=== PATIENT | female | born 1950 | race Asian ===

== ENCOUNTER 2016-11-24 13:31 | Emergency (ER) | payer OTHER ==
[~2016-11-24] VITALS: Ht 162.6 cm; Wt 90.7 kg
[~2016-11-24 13:31] MED LIST: HYDR25TA6 PO; LISI40TA PO; ONDA4TAB10 PO; SIMV40TA3 PO
[2016-11-24] MEDS ORDERED: [UNRECOGNIZED DRUG - OTHER] (13:58)
[2016-11-24] MEDS ORDERED: MECLIZINE CHEWABLE 25 MG TAB ONE (14:08)
[2016-11-24] MEDS ORDERED: MECLIZINE CHEWABLE 25 MG TAB PO ONE (14:30)
[2016-11-24 14:36] LABS: ASPARTATE AMINO TRANSFERASE 25 U/L (15-37); BLOOD UREA NITROGEN 26 mg/dL (7-18)
[2016-11-24] MEDS ORDERED: SODIUM CHLORIDE FLUSH 10ML SYR IVF ONE (15:00)
[2016-11-24] MEDS ORDERED: SODIUM CHLORIDE 0.9% 1,000ML IVBOLUS ONE (15:00)
[2016-11-24] MEDS ORDERED: GADOBUTROL 10 MMOL/10 ML PFS ONE (16:17)
[2016-11-24] MEDS ORDERED: DIAZEPAM 5 MG/ML, 2ML IVPush ONE (17:00)
[2016-11-24] MEDS ORDERED: DIAZEPAM 5 MG/ML, 2ML ONE (17:00)
[2016-11-24 17:39] VITALS: BP 138/73
== END 2016-11-24 18:17 | disposition home or self-care (01) ==
LOC: ED 14:42
DX: R42 Dizziness and giddiness (principal); I10 Essential (primary) hypertension; E78.00 Pure hypercholesterolemia, unspecified; E11.9 Type 2 diabetes mellitus without complications; Z90.710 Acquired absence of both cervix and uterus
CPT/HCPCS: 36415; 70450; 70553; 80053; 85025; 93005; 96361; 96374; 99285; A9585; J3360; J7030

== ENCOUNTER → 2016-12-06 | Outpatient (CLI) | payer OTHER ==
[~2016-12-06] MED LIST changes: +[UNRECOGNIZED DRUG - OTHER]
== END | disposition home or self-care (01) ==
LOC: CFH 07:50
PROVIDERS: ATTEND Physician Assistant
DX: Z13.820 Encounter for screening for osteoporosis (principal); M85.9 Disorder of bone density and structure, unspecified
CPT/HCPCS: 77080